=== PATIENT | female | born 1945 | race Two or more races ===

== ENCOUNTER 2023-02-17 13:54 | Emergency (ER) | payer OTHER, SELFPAY ==
[2023-02-17 14:01] VITALS: BP 157/99; PULSE 60; RESP 16; TEMP 36.6; O2SAT 98; BMI 34.6
--- NOTE | 2023-02-17 14:14 | ED_ITS ---
HPI - Eye Problem General Chief complaint: Eye Problems Stated complaint: SWELLING AROUND EYE Time Seen by Provider: 02/17/23 13:59 Source: family and [employer] Mode of arrival: walk-in Limitations: language barrier History of Present Illness HPI Narrative: 77-year-old female presents to the emergency department for left eye symptoms. She's had some crusty drainage and some puffiness around her eye. No trauma or foreign body. No symptoms in the right eye. She's also had some mild lower back pain without dysuria hematuria. This is an ongoing issue and she saw a chiropractor for it. It doesn't radiate down her legs. No fever or vomiting. Related Data Previous Rx's Medication Instructions Recorded ibuprofen 800 mg tablet 800 mg PO Q8H PRN pain #20 tabs 02/17/23 sulfacetamide sodium 10 % eye drops 2 drp ophthalmic (eye) Q4H #15 mL 02/17/23 Allergies Allergy/AdvReac Type Severity Reaction Status Date / Time No Known Drug Allergies Allergy Verified 02/17/23 14:03 Review of Systems ROS Narrative A ten point review of systems is negative except as noted above. PFSH PFSH Social History Smoking status: Never smoker Exam Narrative Exam Narrative: Nurses note and vital signs reviewed and patient is not hypoxic. General: The patient appears well and in no apparent distress. Patient is resting comfortably on cart. Skin: Warm, dry, no pallor noted. There is no rash noted. Head: Normocephalic, atraumatic Eye: right conjunctiva is normal. The left is mildly injected and there may be some very minimal lid edema. No periorbital swelling or erythema. Ears, Nose, Mouth, and Throat: oral mucosa is moist. Nares patent. Cardiovascular: Regular Rate and Rhythm Respiratory: Patient is in no distress, no accessory muscle use, lungs are clear to auscultation, no wheezing, rales or rhonchi Back: non-tender, no CVA tenderness bilaterally to percussion. GI: nontender Musculoskeletal: The patient has no evidence of calf tenderness, no pitting edema, symmetrical pulses noted bilaterally Neurological: awake and alert. She speaks [place] and her sister provides an excellent interpretation. Psychiatric: Cooperative Constitutional Vital Signs, click to edit/add: Last Vital Signs Temp 97.9 F 02/17/23 14:01 Pulse 60 02/17/23 14:01 Resp 16 02/17/23 14:01 BP 157/99 H 02/17/23 14:01 Pulse Ox 98 02/17/23 14:01 O2 Del Method Room Air 02/17/23 14:01 Course Vital Signs Vital signs: Vital Signs Temperature 97.9 F 02/17/23 14:01 Pulse Rate 60 02/17/23 14:01 Respiratory Rate 16 02/17/23 14:01 Blood Pressure 157/99 H 02/17/23 14:01 Pulse Oximetry 98 02/17/23 14:01 Oxygen Delivery Method Room Air 02/17/23 14:01 Temperature 97.9 F 02/17/23 14:01 Pulse Rate 60 02/17/23 14:01 Respiratory Rate 16 02/17/23 14:01 Blood Pressure 157/99 H 02/17/23 14:01 Pulse Oximetry 98 02/17/23 14:01 Oxygen Delivery Method Room Air 02/17/23 14:01 MDM - Eye Problem MDM Narrative Medical decision making narrative: my clinical impressions that she has conjunctivitis and she is provided a prescription for Bleph-10. I'm also prescribing her ibuprofen for her back. Treatment diagnosis and follow-up were discussed with the patient. Differential Diagnosis Differential diagnosis: Likely corneal abrasion, conjunctivitis, periorbital cellulitis and subconjunctival hemorrhage Discharge Plan Discharge Chief Complaint: Eye Problems Clinical Impression: Bacterial conjunctivitis Patient Disposition: Home, Self-Care Time of Disposition Decision: 14:13 Condition: Good Mode of Transportation: Private Vehicle Prescriptions / Home Meds: New ibuprofen 800 mg tablet 800 mg PO Q8H PRN (Reason: pain) Qty: 20 0RF sulfacetamide sodium 10 % drops 2 drp ophthalmic (eye) Q4H Qty: 15 0RF Instructions: Conjunctivitis (ED) Stand Alone Forms: Portal Instructions Referrals: Physician,Non-Staff, MD [Primary Care Provider] - 1 week
== END 2023-02-17 14:25 | disposition home or self-care (01) ==
PROVIDERS: Emergency Provider Emergency Medicine
DX: H10.9 Unspecified conjunctivitis (principal); M54.50 Low back pain, unspecified
CPT/HCPCS: 99283